=== PATIENT | female | born 1990 | race Caucasian/White ===

== ENCOUNTER 2020-06-22 15:10 | Emergency (ER) | payer MEDICAID ==
[~2020-06-22] VITALS: Ht 149.9 cm; Wt 55.0 kg
[~2020-06-22 15:10] MED LIST: DOCU-131 PO; FERR325T16 PO; METO10TA82 PO; NITR100C56 PO
[2020-06-22 15:16] VITALS: BP 117/79
--- NOTE | 2020-06-22 15:38 | NUR ---
PT BIB SELF VIA POV. PER PT SHE HAS HAD SOME PAIN RADIATING FROM ARMPIT TO RIGHT BREAST. PT STATES FAMILY HX OF BREAST CX, SHE DOES REGULAR SELF EXAMINATIONS BUT HAS NEVER HAD MAMMOGRAM. PT ALSO STATES SHE FELT A SMALL LUMP ON R BREAST, BUT HAS HAD IT BEFORE AND HAD IT EXAMINED BY PCP. PT RESTING IN [facility] AT THIS TIME, [facility].
== END 2020-06-22 16:46 | disposition home or self-care (01) ==
LOC: ED 15:29
DX: R07.89 Other chest pain (principal); N64.4 Mastodynia; M79.89 Other specified soft tissue disorders; R94.31 Abnormal electrocardiogram [ECG] [EKG]
CPT/HCPCS: 93005; 99283

== ENCOUNTER 2020-10-22 10:50 | Emergency (ER) | payer MEDICAID ==
[~2020-10-22] VITALS: Ht 149.9 cm; Wt 46.3 kg
[2020-10-22 11:59] LABS: BASOPHILS % (AUTO) 1 % (0-1); EOSINOPHILS % (AUTO) 2 % (1-7); LYMPHOCYTES % (AUTO) 30 % (22-44); MEAN CORPUSCULAR HEMOGLOBIN 29.6 pg (27.0-34.8); MEAN CORPUSCULAR HGB CONC 33.2 g/dL (32.4-35.8); MEAN PLATELET VOLUME 7.8 fL (7.4-10.4); MONOCYTES % (AUTO) 9 % (2-9); NEUTROPHILS % (AUTO) 59 % (42-75); PLATELET COUNT 222 x10^3/uL (130-400); RED BLOOD COUNT 4.86 x10^6/uL (3.82-5.3); RED CELL DISTRIBUTION WIDTH 13.1 % (9.6-15.2)
[2020-10-22 12:00] LABS: MD NO
[2020-10-22 12:04] LABS: ALBUMIN 3.6 g/dL (3.4-5.0); ANION GAP 8 mmol/L (5-15); CALCIUM 8.5 mg/dL (8.5-10.1); CHLORIDE 116 mmol/L (98-107)
[2020-10-22 12:08] LABS: ALANINE AMINOTRANSFERASE 15 U/L (12-78); ALKALINE PHOSPHATASE 95 U/L (45-117); BILIRUBIN,TOTAL 0.3 mg/dL (0.2-1.0); CREATININE 1.91 mg/dL (0.55-1.02)
--- NOTE | 2020-10-22 12:50 | NUR ---
PT AMBULATORY TO ROOM AT THIS TIME
[2020-10-22 14:25] VITALS: BP 119/75
--- NOTE | 2020-10-22 15:28 | NUR ---
ERP TO BEDSIDE FOR MANUAL FECAL DE-IMPACTION
--- NOTE | 2020-10-22 16:15 | NUR ---
Patient/Caregiver given discharge instructions and they have confirmed that they understand the instructions. Patient ambulatory with steady gait.
== END 2020-10-22 16:16 | disposition home or self-care (01) ==
LOC: ED 13:32
DX: K64.8 Other hemorrhoids (principal); K59.00 Constipation, unspecified
CPT/HCPCS: 36415; 74021; 80053; 85025; 99284

== ENCOUNTER 2020-10-31 17:18 | Emergency (ER) | payer MEDICAID ==
[~2020-10-31] VITALS: Ht 149.9 cm; Wt 47.2 kg
[2020-10-31] MEDS ORDERED: ACETAMINOPHEN 500 MG TABLET ONE (19:38)
--- NOTE | 2020-10-31 19:40 | NUR ---
Task RN: assumed care of pt on behalf of primary RN for medication administration. pt c/o R hand pain, no injury Shelia MAZA at bedside for recheck
[2020-10-31 19:56] VITALS: BP 119/82
[2020-10-31] MEDS ORDERED: ACETAMINOPHEN 500 MG TABLET PO ONE (20:00)
== END 2020-10-31 20:02 | disposition home or self-care (01) ==
LOC: ED 18:22
DX: M79.671 Pain in right foot (principal)
CPT/HCPCS: 36415; 73130; 84550; 99284; J7512

== ENCOUNTER 2020-12-06 14:08 | Emergency (ER) | payer MEDICAID ==
[~2020-12-06] VITALS: Ht 149.9 cm; Wt 45.0 kg
[2020-12-06 14:12] VITALS: BP 116/80
[2020-12-06] MEDS ORDERED: METHOCARBAMOL 750 MG TABLET ONE (14:46)
[2020-12-06] MEDS ORDERED: HYDROcodone/APAP 5/325 TABLET ONE (14:46)
[2020-12-06] MEDS ORDERED: METHOCARBAMOL 750 MG TABLET PO ONE (15:00)
[2020-12-06] MEDS ORDERED: HYDROcodone/APAP 5/325 TABLET PO PRN (15:00)
== END 2020-12-06 16:37 | disposition home or self-care (01) ==
LOC: ED 15:32
DX: S16.1XXA Strain of muscle, fascia and tendon at neck level, initial encounter (principal); S00.83XA Contusion of other part of head, initial encounter; S09.90XA Unspecified injury of head, initial encounter; V49.49XA Driver injured in collision with other motor vehicles in traffic accident, initial encounter; Y93.89 Activity, other specified; Y92.89 Other specified places as the place of occurrence of the external cause; Y99.8 Other external cause status
CPT/HCPCS: 70450; 72125; 99285